=== PATIENT | male | born 1985 | race Caucasian/White ===

== ENCOUNTER 2021-10-08 15:14 | Emergency (ER) | payer SELFPAY ==
[~2021-10-08] VITALS: Ht 167.6 cm; Wt 86.2 kg
[~2021-10-08 15:14] MED LIST: ALPRAZOLAM ER1 MG PO; AMOXICILLIN500 MG PO; AZITHROMYCIN500 MG PO; BACTRIM DS TAB1 EACH PO; BUPRENORPHINE HC8 MG SL; CEPHALEXIN500 MG PO; CYCLOBENZAPRINE10 MG PO; FLONASE2 SPRAY NS; GUAIFENESIN-CO118 ML PO; IBUPROFEN400 MG PO; IBUPROFEN600 MG PO; NAPROXEN500 MG PO; OXYCODONE HCL5 MG PO; PERCOCET 5-3251 EACH PO; TRAMADOL HCL50 MG PO
[2021-10-08] MEDS ORDERED: PREDNISONE10 MG PO (15:45)
== END 2021-10-08 15:59 | disposition home or self-care (01) ==
LOC: ED 15:14
DX: G51.0 Bell's palsy (principal); F17.200 Nicotine dependence, unspecified, uncomplicated; Z88.5 Allergy status to narcotic agent
CPT/HCPCS: 99283; J7512